=== PATIENT | female | born 1940 | race Caucasian/White ===

== ENCOUNTER 2018-08-28 12:54 | Emergency (ER) | payer MEDICARE, OTHER ==
[~2018-08-28] VITALS: Ht 165.1 cm; Wt 70.3 kg
[~2018-08-28 12:54] MED LIST: DILTIAZEM; METF-372; WARFARIN
[2018-08-28] MEDS ORDERED: InsuLIN REG 1unit/0.01ml Soln (100units/ml) SC ONE (13:30)
[2018-08-28 13:33] LABS: Basophils # (auto) 0 uL; Basophils % (auto) 0.3 % (0.0-2.0); Eosinophils # (auto) 0.2 uL; Eosinophils % (auto) 4.1 % (0.0-7.0); Hematocrit 32.4 % (36.0-46.0); Hemoglobin 10.3 g/dL (12.2-16.2); Lymphocytes # (auto) 0.7 uL; Lymphocytes % (auto) 15.8 % (10.0-50.0); Mean Corpuscular Hemoglobin 28.1 pg (28.0-32.0); Mean Corpuscular Hgb Conc. 31.8 g/dL (32.0-36.0); Mean Corpuscular Volume 88.6 fL (80.0-100.0); Monocytes # (auto) 0.5 uL; Monocytes % (auto) 10.6 % (0.0-12.0); Neutrophils # (auto) 3.2 uL; Neutrophils % (auto) 69.2 % (37.0-80.0); Platelet Count (auto) 118 10^3/uL (140-450); Red Blood Cells 3.66 10^6/uL (4.0-5.20); Red Cell Distribution Width 16.5 % (11.8-14.3); White Blood Cell 4.6 10^3/uL (4.4-10.8)
[2018-08-28 13:48] LABS: Albumin 3.6 g/dL (3.4-5.0); Anion Gap 6 (5-15); Blood Urea Nitrogen 14 mg/dL (7-18); Calcium 8.6 mg/dL (8.5-10.1); Carbon Dioxide 25 mmol/L (21-32); Chloride 101 mmol/L (98-107); Magnesium 1.8 mg/dL (1.6-2.6); Potassium 4.7 mmol/L (3.5-5.1); Sodium 132 mmol/L (136-145)
[2018-08-28 13:56] LABS: Alanine Aminotransferase 30 U/L (13-56); Alkaline Phosphatase 79 U/L (45-117); Aspartate Aminotransferase 33 U/L (15-37); BUN/Creatinine Ratio 11.5; Bilirubin, Total 1.2 mg/dL (0.2-1.0); GFR African American 55 mL/min; GFR Non-African American 45 mL/min; Total Protein 7.6 g/dL (6.4-8.2)
[2018-08-28 14:03] LABS: Glucose 425 mg/dL (74-106)
[2018-08-28 14:55] LABS: Urine Bacteria NONE SEEN /hpf (None Seen); Urine Blood Negative /uL (Negative); Urine Specific Gravity 1.024 (1.001-1.035); Urine WBC 1 /hpf (0 - 5)
[2018-08-28] MEDS ORDERED: SODIUM CHLORIDE 0.9% 1,000 ML IV ONE ×2 (15:39)
[2018-08-28 16:55] VITALS: BP 132/80
== END 2018-08-28 16:59 | disposition home or self-care (01) ==
LOC: ER 13:03
DX: E11.65 Type 2 diabetes mellitus with hyperglycemia (principal); I50.9 Heart failure, unspecified; I48.91 Unspecified atrial fibrillation; Z86.73 Personal history of transient ischemic attack (TIA), and cerebral infarction without residual deficits; Z85.828 Personal history of other malignant neoplasm of skin; Z88.1 Allergy status to other antibiotic agents; Z88.8 Allergy status to other drugs, medicaments and biological substances
CPT/HCPCS: 36415; 71046; 80053; 81001; 82962; 83735; 84484; 85025; 93005; 94761; 96360; 96372; 99284; J1815; J7030

== ENCOUNTER 2019-01-09 09:25 | Emergency (ER) | payer OTHER ==
[~2019-01-09] VITALS: Ht 154.9 cm; Wt 61.2 kg
[2019-01-09 09:35] VITALS: BP 97/75
== END 2019-01-09 11:12 | disposition home or self-care (01) ==
LOC: ER 09:25
DX: M54.31 Sciatica, right side (principal); I48.91 Unspecified atrial fibrillation; E11.9 Type 2 diabetes mellitus without complications; Z90.710 Acquired absence of both cervix and uterus; Z88.1 Allergy status to other antibiotic agents; Z88.8 Allergy status to other drugs, medicaments and biological substances; Z79.84 Long term (current) use of oral hypoglycemic drugs; Z79.01 Long term (current) use of anticoagulants; Z86.73 Personal history of transient ischemic attack (TIA), and cerebral infarction without residual deficits
CPT/HCPCS: 93971

== ENCOUNTER 2019-11-29 11:52 | Inpatient (IN) | payer OTHER ==
[2019-11-28 14:29] VITALS: BP 103/61
[~2019-11-29] VITALS: Ht 152.4 cm; Wt 59.8 kg
[2019-11-29] VITALS (28 sets, daily range): BP systolic 92–170; BP diastolic 44–143
[~2019-11-29 11:52] MED LIST changes: -DILTIAZEM; +DILTIAZEM PO; -WARFARIN; +WARFARIN PO
[2019-11-29] MEDS ORDERED: MIDAZOLAM DRIP 50 mg/50mL 50 ML IV ONE (11:57)
[2019-11-29] MEDS ORDERED: SUCCINYLCHOLINE CHLORIDE 20 MG/ML 10ML VIAL IV ONE ×2 (11:58→12:15)
[2019-11-29] MEDS ORDERED: ETOMIDATE (2MG/ML) 20ML VIAL IV ONE ×2 (11:58→12:15)
[2019-11-29] MEDS: MIDAZOLAM DRIP 50 mg/50mL 50 ML IV SCH ×2 (12:10→21:03)
[2019-11-29] MEDS ORDERED: PROPOFOL 100 ML IV ONE (12:16)
[2019-11-29] MEDS ORDERED: NOREPINEPHRINE 8 MG/250ML KIT 250 ML IV ONE (12:23)
[2019-11-29] MEDS: NOREPINEPHRINE 8 MG/250ML KIT 250 ML IV SCH ×2 (12:30→21:03)
[2019-11-29 13:06] LABS: Albumin 2.9 g/dL (3.4-5.0); Potassium 3.7 mmol/L (3.5-5.1)
[2019-11-29 13:11] LABS: Basophils # (auto) 0 10 ^3/uL (0-0.2); Basophils % (auto) 0.3 % (0.0-2.0); Eosinophils # (auto) 0.1 10 ^3/uL (0-0.8); Eosinophils % (auto) 0.7 % (0.0-7.0); Hematocrit 47.4 % (36.0-46.0); Hemoglobin 14.7 g/dL (12.2-16.2); Lymphocytes # (auto) 1.5 10 ^3/uL (0.4-5.4); Lymphocytes % (auto) 13.6 % (10.0-50.0); Mean Corpuscular Hemoglobin 26.7 pg (28.0-32.0); Mean Corpuscular Volume 86.1 fL (80.0-100.0); Monocytes # (auto) 0.2 10 ^3/uL (0-1.3); Monocytes % (auto) 1.4 % (0.0-12.0); Neutrophils # (auto) 9.3 10 ^3/uL (1.6-8.6); Nucleated Red Blood Cells % 0.1 %; Platelet Count (auto) 162 10^3/uL (140-450); Red Cell Distribution Width 17.1 % (11.8-14.3); Total Protein 7.6 g/dL (6.4-8.2); White Blood Cell 11.1 10^3/uL (4.4-10.8)
[2019-11-29] MEDS ORDERED: IOHEXOL 350 MG/ML 100ML IJ ONE ×2 (13:35→13:43)
[2019-11-29] MEDS: PROPOFOL 100 ML IV SCH (14:07)
[2019-11-29] MEDS ORDERED: fentaNYL Drip 2500mCg/250mlNS 250 ML IV SCH (14:07)
[2019-11-29] MEDS ORDERED: MORPHINE SULF INJ 2 MG/ML SYRINGE 1ML IV PRN (14:15)
[2019-11-29] MEDS ORDERED: SODIUM BICARBONATE 8.4 % INJ 50ML VIAL IV ONE (14:15)
[2019-11-29] MEDS ORDERED: ENOXAPARIN SOD 60 MG/0.6 ML SYRINGE SC ONE (14:15)
[2019-11-29] MEDS ORDERED: DEXTROSE (50%) 50ML SYRG IV PRN (14:15)
[2019-11-29] MEDS ORDERED: NITROGLYCERIN 0.4 MG SL TAB SL PRN (14:15)
[2019-11-29] MEDS ORDERED: AMIODARONE HCL 150 MG in D5W 5% 100 ML IV ONE (15:00)
[2019-11-29] MEDS: PHENYLEPHRINE IV 250 ML IV SCH ×2 (15:00→23:16)
[2019-11-29] MEDS ORDERED: AMIODARONE 450mg/250ml AE 250 ML IV SCH ×2 (15:00→21:00)
[2019-11-29 15:29] LABS: INR 2.3 (0.9-1.15); Partial Thromboplastin Time 40.9 sec (23.64-32.05)
[2019-11-29] MEDS: ACCU-CHEK COMFORT CURVE STRIP VI SCH ×2 (16:36→21:30)
[2019-11-29] MEDS: InsuLIN REG 1unit/0.01ml Soln (100units/ml) SC SCH ×2 (16:47→21:30)
[2019-11-29] MEDS: SODIUM BICARBONATE 50ML VIAL 50 ML in SOD CHL 0.45% 1,000 ML IV SCH ×3 (17:37)
[2019-11-29 17:51] LABS: Lactic Acid w/Reflex 10.3 mmol/L (0.4-2.0)
[2019-11-29] MEDS ORDERED: DIGO1TAB35 PO (21:09)
[2019-11-29] MEDS ORDERED: LINA5TAB PO (21:09)
[2019-11-29] MEDS ORDERED: PANT1INJ3 PO (21:09)
[2019-11-29] MEDS ORDERED: METO25TA93 PO (21:09)
[2019-11-30] VITALS (107 sets, daily range): BP systolic 75–153; BP diastolic 36–83
[2019-11-30 04:54] LABS: Basophils # (auto) 0 10 ^3/uL (0-0.2); Hemoglobin 12.5 g/dL (12.2-16.2); Monocytes # (auto) 0.6 10 ^3/uL (0-1.3); Nucleated Red Blood Cells % 0.1 %
[2019-11-30 05:00] LABS: Basophils % (auto) 0.2 % (0.0-2.0); Eosinophils # (auto) 0.1 10 ^3/uL (0-0.8); Eosinophils % (auto) 0.5 % (0.0-7.0); Hematocrit 37.7 % (36.0-46.0); Lymphocytes # (auto) 1.5 10 ^3/uL (0.4-5.4); Lymphocytes % (auto) 13.2 % (10.0-50.0); Mean Corpuscular Hemoglobin 27.5 pg (28.0-32.0); Mean Corpuscular Hgb Conc. 33.3 g/dL (32.0-36.0); Mean Corpuscular Volume 82.6 fL (80.0-100.0); Monocytes % (auto) 5.3 % (0.0-12.0); Neutrophils # (auto) 9.4 10 ^3/uL (1.6-8.6); Neutrophils % (auto) 80.8 % (37.0-80.0); Platelet Count (auto) 125 10^3/uL (140-450); Red Blood Cells 4.56 10^6/uL (4.0-5.20); Red Cell Distribution Width 16.6 % (11.8-14.3); White Blood Cell 11.6 10^3/uL (4.4-10.8)
[2019-11-30] MEDS ORDERED: AMIODARONE 450mg/250ml AE 250 ML IV SCH ×2 (05:03→18:03)
[2019-11-30 05:07] LABS: Albumin 2.5 g/dL (3.4-5.0); Calcium 8.5 mg/dL (8.5-10.1); Potassium 3.5 mmol/L (3.5-5.1)
[2019-11-30 05:11] LABS: BUN/Creatinine Ratio 17.1; Bilirubin, Total 1.3 mg/dL (0.2-1.0); Total Protein 6.3 g/dL (6.4-8.2)
[2019-11-30] MEDS: ACCU-CHEK COMFORT CURVE STRIP VI SCH ×4 (07:20→22:00)
[2019-11-30] MEDS: InsuLIN REG 1unit/0.01ml Soln (100units/ml) SC SCH ×4 (07:20→22:00)
[2019-11-30] MEDS: PHENYLEPHRINE IV 250 ML IV SCH (07:30)
[2019-11-30] MEDS: MIDAZOLAM DRIP 50 mg/50mL 50 ML IV SCH ×2 (08:02→15:57)
[2019-11-30] MEDS: SODIUM BICARBONATE 50ML VIAL 50 ML in SOD CHL 0.45% 1,000 ML IV SCH ×4 (08:04→18:17)
[2019-11-30] MEDS: cefTRIAXone 1GM/50ML D5W 50 ML IV SCH (09:09)
[2019-11-30] MEDS ORDERED: ZINC SULFATE 220mg CAP or TAB PO SCH (10:00)
[2019-11-30] MEDS ORDERED: CHOLECALCIFEROL (VITD3) 1,000IU=25mCg TAB PO SCH (10:00)
[2019-11-30] MEDS ORDERED: ASPirin-EC 81 mg tab PO SCH (10:00)
[2019-11-30] MEDS: ASCORBIC ACID 500 MG TAB PO SCH (10:27)
[2019-11-30] MEDS: ASPirin 81 mg TAB PO SCH (10:27)
[2019-11-30] MEDS: AZITHROMYCIN 500MG/ 250ML 250 ML IV SCH (10:27)
[2019-11-30] MEDS: ENOXAPARIN SOD 30 MG/0.3 ML SYRINGE SC SCH (10:28)
[2019-11-30] MEDS: PROPOFOL 100 ML IV SCH (12:21)
[2019-11-30] MEDS: NOREPINEPHRINE 8 MG/250ML KIT 250 ML IV SCH (14:32)
[2019-11-30 14:34] LABS: BUN/Creatinine Ratio 17.3; Potassium 4.1 mmol/L (3.5-5.1)
[2019-11-30] MEDS ORDERED: DEXTROSE (50%) 50ML SYRG IV PRN ×2 (14:45→15:15)
[2019-11-30] MEDS ORDERED: InsuLIN R (HUMAN) 100 UNITS in SODIUM CHL 0.9% 99 ML IV SCH (14:45)
[2019-11-30] MEDS ORDERED: ACCU-CHEK COMFORT CURVE STRIP VI SCH (15:00)
[2019-11-30 18:54] LABS: BUN/Creatinine Ratio 20.9; Calcium 7.7 mg/dL (8.5-10.1)
[2019-12-01] VITALS (97 sets, daily range): BP systolic 81–131; BP diastolic 29–67
[2019-12-01] MEDS: AMIODARONE 450mg/250ml AE 250 ML IV SCH ×2 (00:03→15:25)
[2019-12-01] MEDS: SODIUM BICARBONATE 50ML VIAL 50 ML in SOD CHL 0.45% 1,000 ML IV SCH ×2 (00:15→10:45)
[2019-12-01] MEDS: MIDAZOLAM DRIP 50 mg/50mL 50 ML IV SCH ×2 (00:43→20:16)
[2019-12-01 03:42] LABS: Albumin 2.1 g/dL (3.4-5.0); Calcium 7.3 mg/dL (8.5-10.1); Potassium 3.7 mmol/L (3.5-5.1)
[2019-12-01 03:45] LABS: BUN/Creatinine Ratio 22.5; Bilirubin, Total 1.6 mg/dL (0.2-1.0); Total Protein 5.2 g/dL (6.4-8.2)
[2019-12-01 03:46] LABS: Lactic Acid w/Reflex 2.3 mmol/L (0.4-2.0)
[2019-12-01] MEDS: ACCU-CHEK COMFORT CURVE STRIP VI SCH ×4 (06:27→21:43)
[2019-12-01] MEDS: InsuLIN REG 1unit/0.01ml Soln (100units/ml) SC SCH ×4 (06:27→21:45)
[2019-12-01 08:42] LABS: Basophils # (auto) 0 10 ^3/uL (0-0.2); Basophils % (auto) 0.4 % (0.0-2.0); Eosinophils # (auto) 0.1 10 ^3/uL (0-0.8); Eosinophils % (auto) 1.3 % (0.0-7.0); Hematocrit 27.1 % (36.0-46.0); Hemoglobin 9.2 g/dL (12.2-16.2); Lymphocytes # (auto) 0.8 10 ^3/uL (0.4-5.4); Lymphocytes % (auto) 10.8 % (10.0-50.0); Mean Corpuscular Hemoglobin 27.2 pg (28.0-32.0); Mean Corpuscular Hgb Conc. 33.9 g/dL (32.0-36.0); Mean Corpuscular Volume 80.3 fL (80.0-100.0); Monocytes # (auto) 0.6 10 ^3/uL (0-1.3); Monocytes % (auto) 8.2 % (0.0-12.0); Neutrophils # (auto) 6.1 10 ^3/uL (1.6-8.6); Neutrophils % (auto) 79.3 % (37.0-80.0); Nucleated Red Blood Cells % 0.1 %; Platelet Count (auto) 74 10^3/uL (140-450); Red Blood Cells 3.38 10^6/uL (4.0-5.20); Red Cell Distribution Width 16.5 % (11.8-14.3); White Blood Cell 7.7 10^3/uL (4.4-10.8)
[2019-12-01] MEDS: cefTRIAXone 1GM/50ML D5W 50 ML IV SCH (09:30)
[2019-12-01] MEDS: ASCORBIC ACID 500 MG TAB PO SCH (10:00)
[2019-12-01] MEDS: ENOXAPARIN SOD 30 MG/0.3 ML SYRINGE SC SCH (10:00)
[2019-12-01] MEDS: ASPirin 81 mg TAB PO SCH (10:00)
[2019-12-01] MEDS ORDERED: PHYTONADIONE (VIT K)10 MG/ML 1ML VIAL SUBCUT ONE (10:00)
[2019-12-01] MEDS: PANTOPRAZOLE 40 MG/10 ML VIAL INJ IV SCH (10:41)
[2019-12-01] MEDS: AZITHROMYCIN 500MG/ 250ML 250 ML IV SCH (10:43)
[2019-12-01 11:22] LABS: INR 1.58 (0.9-1.15)
[2019-12-01] MEDS ORDERED: LIDOCAINE W/ EPINEPHRINE 1% 20ML VIAL ONE (13:19)
[2019-12-01] MEDS ORDERED: MIDAZOLAM HCL 1MG/1ML-2 ML VIAL ONE (13:29)
[2019-12-01] MEDS ORDERED: fentaNYL CITRATE 100 MCG/2 ML VL ONE (13:29)
[2019-12-01] MEDS ORDERED: MIDAZOLAM HCL 1MG/1ML-2 ML VIAL IV PRN (14:30)
[2019-12-01] MEDS ORDERED: ACCU-CHEK COMFORT CURVE STRIP VI ONE (14:30)
[2019-12-01] MEDS ORDERED: LABETALOL HCL 5 MG/ML 4ML SYRINGE IV PRN (14:30)
[2019-12-01] MEDS ORDERED: HYDROmorphone HCL 2 MG/ML VL IV PRN (14:30)
[2019-12-01] MEDS ORDERED: ONDANSETRON HCL 4 MG/2 ML VIAL IV PRN (14:30)
[2019-12-01] MEDS ORDERED: ePHEDrine SULFATE 50 MG/ML AMP IV PRN (14:30)
[2019-12-01] MEDS ORDERED: MORPHINE SULFATE 4 MG/ML SYR/VIAL IV PRN (14:30)
[2019-12-01] MEDS: INSULIN LANTUS (GLARGINE) 1 /0.01ml (100units/ml) SC SCH (16:00)
[2019-12-01] MEDS: PROPOFOL 100 ML IV SCH (16:08)
[2019-12-01 17:38] LABS: Magnesium 1.4 mg/dL (1.6-2.6)
[2019-12-01] MEDS ORDERED: DIGOXIN 0.125 MG TAB GT ONE (18:00)
[2019-12-01] MEDS: fentaNYL Drip 2500mCg/250mlNS 250 ML IV SCH (18:00)
[2019-12-01] MEDS: MAGNESIUM SULFATE 1GM/100ML 100 ML IV SCH ×2 (18:54→19:00)
[2019-12-02] VITALS (112 sets, daily range): BP systolic 37–185; BP diastolic 22–90
[2019-12-02] MEDS: AMIODARONE 450mg/250ml AE 250 ML IV SCH ×2 (03:30→15:09)
[2019-12-02 03:48] LABS: Albumin 2.2 g/dL (3.4-5.0); Calcium 7.6 mg/dL (8.5-10.1); Magnesium 1.9 mg/dL (1.6-2.6); Potassium 3.6 mmol/L (3.5-5.1)
[2019-12-02 03:55] LABS: BUN/Creatinine Ratio 18.4; Bilirubin, Total 1.6 mg/dL (0.2-1.0); Total Protein 5.7 g/dL (6.4-8.2)
[2019-12-02] MEDS: ACCU-CHEK COMFORT CURVE STRIP VI SCH ×4 (06:39→21:44)
[2019-12-02] MEDS: InsuLIN REG 1unit/0.01ml Soln (100units/ml) SC SCH ×4 (06:43→21:53)
[2019-12-02] MEDS: cefTRIAXone 1GM/50ML D5W 50 ML IV SCH (08:55)
[2019-12-02] MEDS: ENOXAPARIN SOD 30 MG/0.3 ML SYRINGE SC SCH (10:00)
[2019-12-02] MEDS: DIGOXIN 0.125 MG TAB GT SCH (10:00)
[2019-12-02] MEDS: ASPirin 81 mg TAB PO SCH (11:08)
[2019-12-02] MEDS: ASCORBIC ACID 500 MG TAB PO SCH (11:08)
[2019-12-02] MEDS: AZITHROMYCIN 500MG/ 250ML 250 ML IV SCH (11:08)
[2019-12-02] MEDS: PANTOPRAZOLE 40 MG/10 ML VIAL INJ IV SCH (11:08)
[2019-12-02] MEDS: INSULIN LANTUS (GLARGINE) 1 /0.01ml (100units/ml) SC SCH (11:09)
[2019-12-02] MEDS: NOREPINEPHRINE 8 MG/250ML KIT 250 ML IV SCH (12:30)
[2019-12-02] MEDS: MAGNESIUM SULFATE 1GM/100ML 100 ML IV SCH ×2 (13:30→15:08)
[2019-12-02] MEDS: PROPOFOL 100 ML IV SCH (15:42)
[2019-12-02] MEDS: fentaNYL Drip 2500mCg/250mlNS 250 ML IV SCH (16:08)
[2019-12-03] VITALS (102 sets, daily range): BP systolic 96–137; BP diastolic 39–72
[2019-12-03 03:54] LABS: Basophils # (auto) 0 10 ^3/uL (0-0.2); Basophils % (auto) 0.2 % (0.0-2.0); Eosinophils # (auto) 0 10 ^3/uL (0-0.8); Eosinophils % (auto) 0.8 % (0.0-7.0); Hematocrit 26.5 % (36.0-46.0); Hemoglobin 8.7 g/dL (12.2-16.2); Lymphocytes # (auto) 0.6 10 ^3/uL (0.4-5.4); Lymphocytes % (auto) 10.9 % (10.0-50.0); Mean Corpuscular Hgb Conc. 32.8 g/dL (32.0-36.0); Mean Corpuscular Volume 82.2 fL (80.0-100.0); Monocytes # (auto) 0.6 10 ^3/uL (0-1.3); Neutrophils # (auto) 4.4 10 ^3/uL (1.6-8.6); Neutrophils % (auto) 77.1 % (37.0-80.0); Platelet Count (auto) 53 10^3/uL (140-450); Red Blood Cells 3.23 10^6/uL (4.0-5.20); Red Cell Distribution Width 16.3 % (11.8-14.3); White Blood Cell 5.7 10^3/uL (4.4-10.8)
[2019-12-03 04:16] LABS: INR 1.2 (0.9-1.15)
[2019-12-03 04:21] LABS: Potassium 3.4 mmol/L (3.5-5.1)
[2019-12-03 04:32] LABS: Albumin 2.2 g/dL (3.4-5.0); BUN/Creatinine Ratio 18.2; Calcium 7.7 mg/dL (8.5-10.1); Magnesium 1.9 mg/dL (1.6-2.6)
[2019-12-03 04:34] LABS: Bilirubin, Total 1.6 mg/dL (0.2-1.0); Total Protein 5.5 g/dL (6.4-8.2)
[2019-12-03] MEDS: ACCU-CHEK COMFORT CURVE STRIP VI SCH ×4 (06:43→21:51)
[2019-12-03] MEDS: InsuLIN REG 1unit/0.01ml Soln (100units/ml) SC SCH ×4 (06:50→22:10)
[2019-12-03] MEDS ORDERED: MAGNESIUM SULFATE 1GM/100ML 100 ML IV ONE ×2 (08:15→16:00)
[2019-12-03] MEDS: POTASSIUM CHL 20MEQ/100ML 100 ML IV SCH ×2 (09:05→10:50)
[2019-12-03 10:00] LABS: Hepatitis A Ab IgM Negative; Hepatitis B Core IgM Negative; Hepatitis B Surface Antigen Negative (Negative); Hepatitis C Antibody Negative (Negative)
[2019-12-03] MEDS: DIGOXIN 0.125 MG TAB GT SCH (10:00)
[2019-12-03] MEDS: ENOXAPARIN SOD 30 MG/0.3 ML SYRINGE SC SCH (10:00)
[2019-12-03] MEDS: ASPirin 81 mg TAB PO SCH (10:49)
[2019-12-03] MEDS: ASCORBIC ACID 500 MG TAB PO SCH (10:49)
[2019-12-03] MEDS: PANTOPRAZOLE 40 MG/10 ML VIAL INJ IV SCH (10:49)
[2019-12-03] MEDS: cefTRIAXone 1GM/50ML D5W 50 ML IV SCH (10:50)
[2019-12-03] MEDS: INSULIN LANTUS (GLARGINE) 1 /0.01ml (100units/ml) SC SCH (10:51)
[2019-12-03] MEDS: MIDAZOLAM DRIP 50 mg/50mL 50 ML IV SCH (12:23)
[2019-12-03] MEDS: NOREPINEPHRINE 8 MG/250ML KIT 250 ML IV SCH (12:30)
[2019-12-03] MEDS: AZITHROMYCIN 500MG/ 250ML 250 ML IV SCH (12:40)
[2019-12-03] MEDS: fentaNYL Drip 2500mCg/250mlNS 250 ML IV SCH (15:49)
[2019-12-03] MEDS: PROPOFOL 100 ML IV SCH (15:49)
[2019-12-03] MEDS: AMIODARONE 450mg/250ml AE 250 ML IV SCH (18:01)
[2019-12-03] MEDS ORDERED: Glucerna 1.2 Cal 1Liter BOTTLE GT SCH (18:15)
[2019-12-03] MEDS ORDERED: CARVEDILOL 3.125 MG TAB GT SCH (22:00)
[2019-12-03 23:31] LABS: Basophils # (auto) 0 10 ^3/uL (0-0.2); Basophils % (auto) 0.1 % (0.0-2.0); Eosinophils # (auto) 0 10 ^3/uL (0-0.8); Eosinophils % (auto) 0.6 % (0.0-7.0); Hemoglobin 8.6 g/dL (12.2-16.2); Lymphocytes # (auto) 0.6 10 ^3/uL (0.4-5.4); Lymphocytes % (auto) 7.9 % (10.0-50.0); Mean Corpuscular Hemoglobin 27.1 pg (28.0-32.0); Mean Corpuscular Volume 82.1 fL (80.0-100.0); Monocytes # (auto) 0.8 10 ^3/uL (0-1.3); Monocytes % (auto) 9.9 % (0.0-12.0); Neutrophils # (auto) 6.7 10 ^3/uL (1.6-8.6); Neutrophils % (auto) 81.5 % (37.0-80.0); Platelet Count (auto) 75 10^3/uL (140-450); Red Blood Cells 3.16 10^6/uL (4.0-5.20); Red Cell Distribution Width 16.8 % (11.8-14.3); White Blood Cell 8.3 10^3/uL (4.4-10.8)
[2019-12-03 23:38] LABS: Potassium 3.8 mmol/L (3.5-5.1)
[2019-12-04] VITALS (76 sets, daily range): BP systolic 97–136; BP diastolic 33–58
[2019-12-04] MEDS: AMIODARONE 450mg/250ml AE 250 ML IV SCH ×2 (00:30→18:38)
[2019-12-04] MEDS ORDERED: POTASSIUM CHL 20MEQ/100ML 100 ML IV ONE (01:30)
[2019-12-04 04:35] LABS: Basophils # (auto) 0 10 ^3/uL (0-0.2); Basophils % (auto) 0.2 % (0.0-2.0); Eosinophils # (auto) 0.1 10 ^3/uL (0-0.8); Eosinophils % (auto) 1.1 % (0.0-7.0); Hematocrit 25.2 % (36.0-46.0); Hemoglobin 8.5 g/dL (12.2-16.2); Lymphocytes # (auto) 0.8 10 ^3/uL (0.4-5.4); Lymphocytes % (auto) 9.1 % (10.0-50.0); Mean Corpuscular Hgb Conc. 33.8 g/dL (32.0-36.0); Mean Corpuscular Volume 82.8 fL (80.0-100.0); Monocytes # (auto) 0.9 10 ^3/uL (0-1.3); Neutrophils # (auto) 7.1 10 ^3/uL (1.6-8.6); Neutrophils % (auto) 79.6 % (37.0-80.0); Platelet Count (auto) 84 10^3/uL (140-450); Red Blood Cells 3.05 10^6/uL (4.0-5.20); Red Cell Distribution Width 16.5 % (11.8-14.3); White Blood Cell 8.9 10^3/uL (4.4-10.8)
[2019-12-04 04:53] LABS: BUN/Creatinine Ratio 16.3; Magnesium 2.1 mg/dL (1.6-2.6); Potassium 4.2 mmol/L (3.5-5.1)
[2019-12-04 04:55] LABS: Bilirubin, Total 2.1 mg/dL (0.2-1.0); Total Protein 5.7 g/dL (6.4-8.2)
[2019-12-04] MEDS: ACCU-CHEK COMFORT CURVE STRIP VI SCH ×4 (06:39→21:38)
[2019-12-04] MEDS: InsuLIN REG 1unit/0.01ml Soln (100units/ml) SC SCH ×4 (06:46→21:39)
[2019-12-04] MEDS: cefTRIAXone 1GM/50ML D5W 50 ML IV SCH (08:38)
[2019-12-04] MEDS: AZITHROMYCIN 500MG/ 250ML 250 ML IV SCH (09:44)
[2019-12-04] MEDS: INSULIN LANTUS (GLARGINE) 1 /0.01ml (100units/ml) SC SCH (09:45)
[2019-12-04] MEDS: PANTOPRAZOLE 40 MG/10 ML VIAL INJ IV SCH (09:46)
[2019-12-04] MEDS: DIGOXIN 0.125 MG TAB GT SCH (09:46)
[2019-12-04] MEDS: CARVEDILOL 12.5 MG TAB PO SCH ×2 (09:52→21:42)
[2019-12-04] MEDS ORDERED: FUROSEMIDE 20 MG/2 ML VIAL IV ONE (14:45)
[2019-12-04] MEDS ORDERED: ALBUTEROL SULF 2.5 MG/0.5ML(0.5%) NEB SOLN NEB PRN (21:00)
[2019-12-04] MEDS: AMIODARONE HCL 200 MG TAB PO SCH (21:38)
[2019-12-05] VITALS (24 sets, daily range): BP systolic 89–145; BP diastolic 35–95
[2019-12-05 04:38] LABS: Basophils # (auto) 0 10 ^3/uL (0-0.2); Basophils % (auto) 0.3 % (0.0-2.0); Eosinophils # (auto) 0.3 10 ^3/uL (0-0.8); Eosinophils % (auto) 3.8 % (0.0-7.0); Hemoglobin 8.2 g/dL (12.2-16.2); Lymphocytes % (auto) 13.1 % (10.0-50.0); Mean Corpuscular Volume 82.4 fL (80.0-100.0); Monocytes # (auto) 1.1 10 ^3/uL (0-1.3); Monocytes % (auto) 14.5 % (0.0-12.0); Neutrophils # (auto) 5.2 10 ^3/uL (1.6-8.6); Neutrophils % (auto) 68.3 % (37.0-80.0); Platelet Count (auto) 108 10^3/uL (140-450); Red Blood Cells 2.91 10^6/uL (4.0-5.20); Red Cell Distribution Width 16.8 % (11.8-14.3); White Blood Cell 7.7 10^3/uL (4.4-10.8)
[2019-12-05 04:59] LABS: Potassium 3.7 mmol/L (3.5-5.1)
[2019-12-05 05:07] LABS: Albumin 2.4 g/dL (3.4-5.0); BUN/Creatinine Ratio 22.2; Bilirubin, Total 2.2 mg/dL (0.2-1.0); Calcium 8.2 mg/dL (8.5-10.1); Total Protein 6.4 g/dL (6.4-8.2)
[2019-12-05] MEDS: ACCU-CHEK COMFORT CURVE STRIP VI SCH ×4 (06:20→22:00)
[2019-12-05] MEDS: InsuLIN REG 1unit/0.01ml Soln (100units/ml) SC SCH ×4 (06:20→21:51)
[2019-12-05] MEDS: FUROSEMIDE 20 MG/2 ML VIAL IV SCH ×2 (06:22→18:04)
[2019-12-05] MEDS: AMIODARONE 450mg/250ml AE 250 ML IV SCH ×2 (06:30→21:30)
[2019-12-05] MEDS: cefTRIAXone 1GM/50ML D5W 50 ML IV SCH (09:16)
[2019-12-05] MEDS: CARVEDILOL 12.5 MG TAB PO SCH (10:02)
[2019-12-05] MEDS: AZITHROMYCIN 500MG/ 250ML 250 ML IV SCH (10:02)
[2019-12-05] MEDS: PANTOPRAZOLE 40 MG/10 ML VIAL INJ IV SCH (10:02)
[2019-12-05] MEDS: DIGOXIN 0.125 MG TAB GT SCH (10:02)
[2019-12-05] MEDS: AMIODARONE HCL 200 MG TAB PO SCH ×2 (10:02→21:49)
[2019-12-05] MEDS: INSULIN LANTUS (GLARGINE) 1 /0.01ml (100units/ml) SC SCH (10:08)
[2019-12-06] VITALS (19 sets, daily range): BP systolic 95–134; BP diastolic 24–56
[2019-12-06 04:05] LABS: Basophils # (auto) 0 10 ^3/uL (0-0.2); Basophils % (auto) 0.2 % (0.0-2.0); Eosinophils # (auto) 0.3 10 ^3/uL (0-0.8); Hemoglobin 7.7 g/dL (12.2-16.2); Lymphocytes % (auto) 17.9 % (10.0-50.0); Neutrophils # (auto) 2.9 10 ^3/uL (1.6-8.6); Nucleated Red Blood Cells % 0.1 %; Platelet Count (auto) 103 10^3/uL (140-450)
[2019-12-06 04:08] LABS: Eosinophils % (auto) 5.6 % (0.0-7.0); Hematocrit 22.9 % (36.0-46.0); Lymphocytes # (auto) 0.8 10 ^3/uL (0.4-5.4); Mean Corpuscular Hemoglobin 28.1 pg (28.0-32.0); Mean Corpuscular Hgb Conc. 33.7 g/dL (32.0-36.0); Mean Corpuscular Volume 83.4 fL (80.0-100.0); Monocytes # (auto) 0.7 10 ^3/uL (0-1.3); Neutrophils % (auto) 61.3 % (37.0-80.0); Red Blood Cells 2.74 10^6/uL (4.0-5.20); Red Cell Distribution Width 16.8 % (11.8-14.3); White Blood Cell 4.7 10^3/uL (4.4-10.8)
[2019-12-06 04:19] LABS: Albumin 2.2 g/dL (3.4-5.0); Calcium 8.3 mg/dL (8.5-10.1); Potassium 3.3 mmol/L (3.5-5.1)
[2019-12-06 04:23] LABS: BUN/Creatinine Ratio 29.2
[2019-12-06 04:32] LABS: Bilirubin, Total 1.7 mg/dL (0.2-1.0); Total Protein 5.9 g/dL (6.4-8.2)
[2019-12-06] MEDS: ACCU-CHEK COMFORT CURVE STRIP VI SCH ×3 (06:10→16:43)
[2019-12-06] MEDS: InsuLIN REG 1unit/0.01ml Soln (100units/ml) SC SCH ×3 (06:10→17:00)
[2019-12-06] MEDS ORDERED: POTASSIUM CHLORIDE 40 MEQ in D5W 5% 1,000 ML IV SCH (06:30)
[2019-12-06] MEDS ORDERED: POTASSIUM CHL 20MEQ/100ML 200 ML IV ONE (06:32)
[2019-12-06] MEDS: cefTRIAXone 1GM/50ML D5W 50 ML IV SCH (09:05)
[2019-12-06] MEDS: PANTOPRAZOLE 40 MG/10 ML VIAL INJ IV SCH (09:07)
[2019-12-06] MEDS: DIGOXIN 0.125 MG TAB GT SCH (09:10)
[2019-12-06] MEDS: AMIODARONE HCL 200 MG TAB PO SCH (09:11)
[2019-12-06] MEDS: INSULIN LANTUS (GLARGINE) 1 /0.01ml (100units/ml) SC SCH (09:22)
[2019-12-06] MEDS ORDERED: FUROSEMIDE 20 MG TAB PO SCH (10:00)
[2019-12-06] MEDS ORDERED: POTASSIUM CHL 10 Meq TABLET PO SCH (10:00)
[2019-12-06] MEDS: AZITHROMYCIN 500MG/ 250ML 250 ML IV SCH (11:00)
[2019-12-06] MEDS ORDERED: SODIUM CHLORIDE 0.9% 1,000 ML IV SCH (14:00)
[2019-12-06] MEDS ORDERED: SODIUM CHLORIDE 0.9% 500 ML IV ONE (14:00)
== END 2019-12-06 22:00 | disposition short-term general hospital (02) | DRG 870 ==
LOC: ER 11:52 → EDBD 11:52 → OVERFLOW 11:53 → ICU WEST 15:35
PROVIDERS: ADMIT Nurse Practitioner Acute Care; ATTEND Internal Medicine
PROC: 5A1955Z Respiratory Ventilation, Greater than 96 Consecutive Hours (ICD-10-PCS; principal; 2019-11-29)
PROC: 0BH17EZ Insertion of Endotracheal Airway into Trachea, Via Natural or Artificial Opening (ICD-10-PCS; 2019-11-29)
PROC: 02HV33Z Insertion of Infusion Device into Superior Vena Cava, Percutaneous Approach (ICD-10-PCS; 2019-11-29)
PROC: 0W9B30Z Drainage of Left Pleural Cavity with Drainage Device, Percutaneous Approach (ICD-10-PCS; 2019-12-01)
PROC: 5A12012 Performance of Cardiac Output, Single, Manual (ICD-10-PCS; 2019-12-02)
DX: A41.9 Sepsis, unspecified organism (principal); J18.9 Pneumonia, unspecified organism; J96.01 Acute respiratory failure with hypoxia; R65.21 Severe sepsis with septic shock; I21.4 Non-ST elevation (NSTEMI) myocardial infarction; D65 Disseminated intravascular coagulation [defibrination syndrome]; E11.10 Type 2 diabetes mellitus with ketoacidosis without coma; K72.00 Acute and subacute hepatic failure without coma; G93.41 Metabolic encephalopathy; I26.99 Other pulmonary embolism without acute cor pulmonale; E44.0 Moderate protein-calorie malnutrition; N17.9 Acute kidney failure, unspecified; J93.9 Pneumothorax, unspecified; I48.20 Chronic atrial fibrillation, unspecified; I13.0 Hypertensive heart and chronic kidney disease with heart failure and stage 1 through stage 4 chronic kidney disease, or unspecified chronic kidney disease; E87.2 Acidosis; I31.3 Pericardial effusion (noninflammatory); T79.7XXA Traumatic subcutaneous emphysema, initial encounter; G93.1 Anoxic brain damage, not elsewhere classified; I47.2 Ventricular tachycardia; E11.65 Type 2 diabetes mellitus with hyperglycemia; E11.22 Type 2 diabetes mellitus with diabetic chronic kidney disease; N18.3 Chronic kidney disease, stage 3 (moderate); I50.9 Heart failure, unspecified; I25.10 Atherosclerotic heart disease of native coronary artery without angina pectoris; K74.60 Unspecified cirrhosis of liver; Y83.8 Other surgical procedures as the cause of abnormal reaction of the patient, or of later complication, without mention of misadventure at the time of the procedure; D72.829 Elevated white blood cell count, unspecified; I48.91 Unspecified atrial fibrillation; J45.909 Unspecified asthma, uncomplicated; E87.6 Hypokalemia; Z90.710 Acquired absence of both cervix and uterus; Z79.4 Long term (current) use of insulin; Z79.01 Long term (current) use of anticoagulants; Z86.73 Personal history of transient ischemic attack (TIA), and cerebral infarction without residual deficits; Z83.3 Family history of diabetes mellitus; Z79.899 Other long term (current) drug therapy; Z88.2 Allergy status to sulfonamides; Z88.1 Allergy status to other antibiotic agents; Z88.8 Allergy status to other drugs, medicaments and biological substances; D63.8 Anemia in other chronic diseases classified elsewhere
CPT/HCPCS: 31500; 36415; 36556; 36600; 51702; 70450; 71045; 71275; 76700; 80048; 80053; 80074; 82140; 82728; 82805; 82962; 83036; 83605; 83735; 83880; 84132; 84443; 84484; 85025; 85362; 85379; 85384; 85610; 85730; 86141; 87040; 87070; 87081; 87205; 87804; 87880; 92610; 93005; 93306; 93970; 94003; 94640; 95819; 96365; 96368; 96372; 96375; 97163; 99291; C9113; G0378; J0330; J0696; J1815; J2250; J2704; J3430; J3480; J7060

== ENCOUNTER 2020-01-08 07:03 | Inpatient (IN) | payer OTHER, MEDICAID ==
[~2020-01-08] VITALS: Ht 165.1 cm; Wt 57.5 kg
[~2020-01-08 07:03] MED LIST changes: +DIGO1TAB35 PO; +LINA5TAB PO; -METF-372; +METF-372 PO; +METO25TA93 PO; +PANT1INJ3 PO
[2020-01-08] MEDS ORDERED: FUROSEMIDE 20 MG/2 ML VIAL IV ONE (07:45)
[2020-01-08 08:01] LABS: Basophils # (auto) 0 10 ^3/uL (0-0.2); Basophils % (auto) 0.4 % (0.0-2.0); Eosinophils # (auto) 0.1 10 ^3/uL (0-0.8); Hematocrit 24.5 % (36.0-46.0); Hemoglobin 7.9 g/dL (12.2-16.2); Lymphocytes # (auto) 0.5 10 ^3/uL (0.4-5.4); Monocytes # (auto) 0.4 10 ^3/uL (0-1.3); Neutrophils # (auto) 1.8 10 ^3/uL (1.6-8.6); White Blood Cell 2.8 10^3/uL (4.4-10.8)
[2020-01-08 08:02] LABS: Eosinophils % (auto) 2.4 % (0.0-7.0); Lymphocytes % (auto) 18.9 % (10.0-50.0); Mean Corpuscular Hemoglobin 27.4 pg (28.0-32.0); Mean Corpuscular Hgb Conc. 32.4 g/dL (32.0-36.0); Mean Corpuscular Volume 84.5 fL (80.0-100.0); Monocytes % (auto) 13.7 % (0.0-12.0); Neutrophils % (auto) 64.6 % (37.0-80.0); Nucleated Red Blood Cells % 0.1 %; Platelet Count (auto) 95 10^3/uL (140-450); Red Cell Distribution Width 17.5 % (11.8-14.3)
[2020-01-08 08:15] LABS: INR 1.23 (0.9-1.15); Partial Thromboplastin Time 29.3 sec (23.64-32.05)
[2020-01-08 08:17] LABS: Albumin 2.8 g/dL (3.4-5.0); Potassium 3.8 mmol/L (3.5-5.1)
[2020-01-08 08:22] LABS: BUN/Creatinine Ratio 22.1; Total Protein 6.6 g/dL (6.4-8.2)
[2020-01-08] MEDS: InsuLIN REG 1unit/0.01ml Soln (100units/ml) SC SCH ×3 (11:30→22:00)
[2020-01-08] MEDS ORDERED: NITROGLYCERIN 0.4 MG SL TAB SL PRN (11:30)
[2020-01-08] MEDS ORDERED: PROMETHAZINE HCL 25 MG/ML 1ML IV PRN (11:30)
[2020-01-08] MEDS: ACCU-CHEK COMFORT CURVE STRIP VI SCH ×3 (11:30→21:45)
[2020-01-08] MEDS ORDERED: DEXTROSE (50%) 50ML SYRG IV PRN (11:30)
[2020-01-08] MEDS ORDERED: LACTULOSE 20Gm/30ML SOLN PO PRN (11:30)
[2020-01-08] MEDS ORDERED: traMADol HCL 50 MG TAB PO PRN (11:30)
[2020-01-08] MEDS ORDERED: MORPHINE SULF INJ 2 MG/ML SYRINGE 1ML IV PRN ×2 (11:30)
[2020-01-08] MEDS ORDERED: CLINDAMYCIN 600MG IV 50 ML IV ONE (12:45)
[2020-01-08] MEDS ORDERED: SPIRONOLACTONE 25 MG TAB PO ONE (12:45)
[2020-01-08 17:00] VITALS: BP 120/45
[2020-01-08] MEDS ORDERED: FLUT250M2 INH (17:00)
[2020-01-08] MEDS: ENOXAPARIN SOD 60 MG/0.6 ML SYRINGE SC SCH ×2 (17:11→21:45)
[2020-01-08] MEDS: SPIRONOLACTONE 25 MG TAB PO SCH (17:11)
[2020-01-08 20:00] VITALS: BP 145/50
[2020-01-08 21:00] VITALS: BP 145/50
[2020-01-08] MEDS: CLINDAMYCIN 600MG IV 50 ML IV SCH (21:45)
[2020-01-08 22:57] LABS: Urine Bacteria NONE SEEN /hpf (None Seen); Urine Blood Negative /uL (Negative); Urine Specific Gravity 1.013 (1.001-1.035); Urine WBC 1 /hpf (0 - 5)
[2020-01-08] MEDS: ALBUTEROL SULF 2.5 MG/0.5ML(0.5%) NEB SOLN NEB SCH (23:16)
[2020-01-08] MEDS: BUDESONIDE (INHALATION) 0.5 MG/2 ML NEB NEB SCH (23:16)
[2020-01-08 23:47] VITALS: BP 145/50
[2020-01-09] VITALS (7 sets, daily range): BP systolic 115–128; BP diastolic 38–55
[2020-01-09 05:37] LABS: Basophils # (auto) 0 10 ^3/uL (0-0.2); Eosinophils # (auto) 0.1 10 ^3/uL (0-0.8); Hemoglobin 7.9 g/dL (12.2-16.2); Lymphocytes # (auto) 0.6 10 ^3/uL (0.4-5.4); Monocytes # (auto) 0.3 10 ^3/uL (0-1.3); Neutrophils # (auto) 1.5 10 ^3/uL (1.6-8.6); White Blood Cell 2.5 10^3/uL (4.4-10.8)
[2020-01-09] MEDS: SPIRONOLACTONE 25 MG TAB PO SCH ×2 (05:38→17:24)
[2020-01-09] MEDS: ACETAMINOPHEN 325 MG TAB PO PRN (05:38)
[2020-01-09] MEDS: CLINDAMYCIN 600MG IV 50 ML IV SCH ×3 (05:38→22:16)
[2020-01-09 05:39] LABS: Basophils % (auto) 0.3 % (0.0-2.0); Hematocrit 23.9 % (36.0-46.0); Lymphocytes % (auto) 23.9 % (10.0-50.0); Mean Corpuscular Hemoglobin 27.8 pg (28.0-32.0); Mean Corpuscular Volume 84.5 fL (80.0-100.0); Monocytes % (auto) 13.1 % (0.0-12.0); Neutrophils % (auto) 59.7 % (37.0-80.0); Nucleated Red Blood Cells % 0.1 %; Platelet Count (auto) 86 10^3/uL (140-450); Red Blood Cells 2.83 10^6/uL (4.0-5.20); Red Cell Distribution Width 17.9 % (11.8-14.3)
[2020-01-09 05:59] LABS: Potassium 3.9 mmol/L (3.5-5.1)
[2020-01-09 06:12] LABS: Albumin 2.7 g/dL (3.4-5.0); BUN/Creatinine Ratio 23.4; Calcium 8.7 mg/dL (8.5-10.1); Total Protein 6.2 g/dL (6.4-8.2)
[2020-01-09] MEDS: ACCU-CHEK COMFORT CURVE STRIP VI SCH ×4 (06:38→22:17)
[2020-01-09] MEDS: InsuLIN REG 1unit/0.01ml Soln (100units/ml) SC SCH ×4 (06:39→22:18)
[2020-01-09] MEDS: ALBUTEROL SULF 2.5 MG/0.5ML(0.5%) NEB SOLN NEB SCH ×3 (06:53→22:34)
[2020-01-09] MEDS: BUDESONIDE (INHALATION) 0.5 MG/2 ML NEB NEB SCH ×2 (06:54→22:33)
[2020-01-09] MEDS ORDERED: ENOXAPARIN SOD 40 MG/0.4 ML SYRINGE SC SCH (10:00)
[2020-01-09] MEDS: METOPROLOL SUCCINATE XL 50 MG TAB PO SCH (10:00)
[2020-01-09] MEDS: DIGOXIN 0.125 MG TAB PO SCH (10:27)
[2020-01-09] MEDS: FUROSEMIDE 40 MG/4 ML VIAL IV SCH (10:28)
[2020-01-09] MEDS: PANTOPRAZOLE 40 MG/10 ML VIAL INJ IV SCH (10:29)
[2020-01-09] MEDS: ENOXAPARIN SOD 60 MG/0.6 ML SYRINGE SC SCH ×2 (10:30→22:17)
[2020-01-09] MEDS: cefTRIAXone 1GM/50ML D5W 50 ML IV SCH (10:33)
[2020-01-09] MEDS ORDERED: INSULIN LANTUS (GLARGINE) 1 /0.01ml (100units/ml) SC SCH (22:00)
[2020-01-10] MEDS: ACETAMINOPHEN 325 MG TAB PO PRN (04:02)
[2020-01-10 05:00] VITALS: BP 126/49
[2020-01-10 06:03] LABS: Basophils # (auto) 0 10 ^3/uL (0-0.2); Basophils % (auto) 0.4 % (0.0-2.0); Eosinophils # (auto) 0.1 10 ^3/uL (0-0.8); Eosinophils % (auto) 3.5 % (0.0-7.0); Hematocrit 23.9 % (36.0-46.0); Hemoglobin 7.9 g/dL (12.2-16.2); Lymphocytes # (auto) 0.7 10 ^3/uL (0.4-5.4); Lymphocytes % (auto) 30.7 % (10.0-50.0); Mean Corpuscular Hemoglobin 27.8 pg (28.0-32.0); Mean Corpuscular Hgb Conc. 33.1 g/dL (32.0-36.0); Monocytes # (auto) 0.3 10 ^3/uL (0-1.3); Monocytes % (auto) 12.7 % (0.0-12.0); Neutrophils # (auto) 1.2 10 ^3/uL (1.6-8.6); Neutrophils % (auto) 52.7 % (37.0-80.0); Nucleated Red Blood Cells % 0.1 %; Platelet Count (auto) 80 10^3/uL (140-450); Red Blood Cells 2.85 10^6/uL (4.0-5.20); Red Cell Distribution Width 17.8 % (11.8-14.3); White Blood Cell 2.3 10^3/uL (4.4-10.8)
[2020-01-10] MEDS: CLINDAMYCIN 600MG IV 50 ML IV SCH ×3 (06:06→21:24)
[2020-01-10] MEDS: SPIRONOLACTONE 25 MG TAB PO SCH ×2 (06:06→17:43)
[2020-01-10] MEDS: ACCU-CHEK COMFORT CURVE STRIP VI SCH ×4 (06:15→21:38)
[2020-01-10 06:28] LABS: Potassium 4.3 mmol/L (3.5-5.1)
[2020-01-10 06:33] LABS: Calcium 8.5 mg/dL (8.5-10.1); Magnesium 1.2 mg/dL (1.6-2.6)
[2020-01-10] MEDS: BUDESONIDE (INHALATION) 0.5 MG/2 ML NEB NEB SCH ×2 (06:41→22:00)
[2020-01-10] MEDS: ALBUTEROL SULF 2.5 MG/0.5ML(0.5%) NEB SOLN NEB SCH ×3 (06:41→22:00)
[2020-01-10] MEDS: InsuLIN REG 1unit/0.01ml Soln (100units/ml) SC SCH ×4 (06:43→21:37)
[2020-01-10 08:40] VITALS: BP 118/39
[2020-01-10] MEDS: cefTRIAXone 1GM/50ML D5W 50 ML IV SCH (09:00)
[2020-01-10] MEDS: PANTOPRAZOLE 40 MG/10 ML VIAL INJ IV SCH (10:00)
[2020-01-10] MEDS: METOPROLOL SUCCINATE XL 50 MG TAB PO SCH (10:02)
[2020-01-10] MEDS: DIGOXIN 0.125 MG TAB PO SCH (10:02)
[2020-01-10] MEDS: FUROSEMIDE 40 MG/4 ML VIAL IV SCH (10:02)
[2020-01-10] MEDS: ENOXAPARIN SOD 60 MG/0.6 ML SYRINGE SC SCH ×2 (10:03→21:25)
[2020-01-10 12:38] VITALS: BP 123/37
[2020-01-10 15:24] LABS: INR 1.2 (0.9-1.15)
[2020-01-10] MEDS: MAGNESIUM SULFATE 1GM/100ML 100 ML IV SCH ×3 (15:39→18:12)
[2020-01-10 16:50] VITALS: BP 119/36
[2020-01-10] MEDS: INSULIN LANTUS (GLARGINE) 1 /0.01ml (100units/ml) SC SCH (21:37)
[2020-01-10 21:44] VITALS: BP 136/61
[2020-01-10] MEDS ORDERED: DEXTROSE (50%) 50ML SYRG IV PRN (23:45)
[2020-01-11 05:00] VITALS: BP 135/67
[2020-01-11] MEDS: SPIRONOLACTONE 25 MG TAB PO SCH ×2 (06:00→17:23)
[2020-01-11] MEDS: BUDESONIDE (INHALATION) 0.5 MG/2 ML NEB NEB SCH ×2 (06:11→22:44)
[2020-01-11] MEDS: ALBUTEROL SULF 2.5 MG/0.5ML(0.5%) NEB SOLN NEB SCH ×3 (06:11→22:44)
[2020-01-11] MEDS: CLINDAMYCIN 600MG IV 50 ML IV SCH ×3 (06:21→21:14)
[2020-01-11] MEDS: InsuLIN REG 1unit/0.01ml Soln (100units/ml) SC SCH ×3 (06:21→16:35)
[2020-01-11] MEDS: ACCU-CHEK COMFORT CURVE STRIP VI SCH ×4 (06:22→21:14)
[2020-01-11] MEDS: cefTRIAXone 1GM/50ML D5W 50 ML IV SCH (08:23)
[2020-01-11] MEDS: ACETAMINOPHEN 325 MG TAB PO PRN ×2 (08:35→22:40)
[2020-01-11 09:00] VITALS: BP 139/46
[2020-01-11] MEDS: PANTOPRAZOLE 40 MG/10 ML VIAL INJ IV SCH (09:24)
[2020-01-11] MEDS: ENOXAPARIN SOD 60 MG/0.6 ML SYRINGE SC SCH ×2 (09:24→21:14)
[2020-01-11] MEDS: DIGOXIN 0.125 MG TAB PO SCH (09:25)
[2020-01-11] MEDS: FUROSEMIDE 40 MG/4 ML VIAL IV SCH (09:25)
[2020-01-11] MEDS: METOPROLOL SUCCINATE XL 50 MG TAB PO SCH (09:25)
[2020-01-11] MEDS: MAGNESIUM OXIDE 400 MG TAB PO SCH (09:25)
[2020-01-11] MEDS: INSULIN LANTUS (GLARGINE) 1 /0.01ml (100units/ml) SC SCH ×2 (09:27→21:24)
[2020-01-11 13:00] VITALS: BP 119/41
[2020-01-11 13:36] LABS: INR 1.15 (0.9-1.15)
[2020-01-11] MEDS ORDERED: PANT40T PO (16:16)
[2020-01-11] MEDS ORDERED: FLUT1AER6 IN (16:18)
[2020-01-11] MEDS ORDERED: INSU1INJ5 SC (16:19)
[2020-01-11] MEDS ORDERED: MONT10TA34 PO (16:19)
[2020-01-11] MEDS ORDERED: OLOP1DRO5 OP (16:20)
[2020-01-11] MEDS ORDERED: ATOR20TA PO (16:21)
[2020-01-11] MEDS ORDERED: CLOP75TA28 PO (16:21)
[2020-01-11] MEDS ORDERED: ASPI-498 PO (16:22)
[2020-01-11] MEDS ORDERED: FERR325T20 PO (16:22)
[2020-01-11] MEDS ORDERED: NITR0.4S29 SL (16:24)
[2020-01-11] MEDS ORDERED: DICL1GEL35 TD (16:25)
[2020-01-11] MEDS ORDERED: FLUT1SPR5 (16:26)
[2020-01-11] MEDS ORDERED: LEVA1AER IN (16:27)
[2020-01-11 16:48] VITALS: BP 108/40
[2020-01-11 22:00] VITALS: BP 121/40
[2020-01-11] MEDS ORDERED: InsuLIN REG 1unit/0.01ml Soln (100units/ml) SC SCH (22:00)
[2020-01-12 00:39] VITALS: BP 121/40
[2020-01-12] MEDS ORDERED: ALBUTEROL SULF 2.5 MG/0.5ML(0.5%) NEB SOLN NEB PRN (04:00)
[2020-01-12 05:00] VITALS: BP 128/44
[2020-01-12 05:40] LABS: Basophils # (auto) 0 10 ^3/uL (0-0.2); Basophils % (auto) 0.7 % (0.0-2.0); Eosinophils # (auto) 0.1 10 ^3/uL (0-0.8); Eosinophils % (auto) 4.6 % (0.0-7.0); Hematocrit 24.5 % (36.0-46.0); Lymphocytes # (auto) 0.7 10 ^3/uL (0.4-5.4); Lymphocytes % (auto) 33.4 % (10.0-50.0); Mean Corpuscular Hemoglobin 27.4 pg (28.0-32.0); Mean Corpuscular Hgb Conc. 32.8 g/dL (32.0-36.0); Mean Corpuscular Volume 83.6 fL (80.0-100.0); Monocytes # (auto) 0.3 10 ^3/uL (0-1.3); Monocytes % (auto) 13.3 % (0.0-12.0); Neutrophils # (auto) 1.1 10 ^3/uL (1.6-8.6); Nucleated Red Blood Cells % 0.3 %; Platelet Count (auto) 81 10^3/uL (140-450); Red Blood Cells 2.93 10^6/uL (4.0-5.20); Red Cell Distribution Width 17.6 % (11.8-14.3); White Blood Cell 2.2 10^3/uL (4.4-10.8)
[2020-01-12 05:58] LABS: BUN/Creatinine Ratio 25.9; Calcium 8.6 mg/dL (8.5-10.1); Magnesium 1.8 mg/dL (1.6-2.6); Potassium 4.3 mmol/L (3.5-5.1)
[2020-01-12] MEDS: SPIRONOLACTONE 25 MG TAB PO SCH (06:00)
[2020-01-12 06:03] LABS: % Iron Saturation 6.9 % (15-50)
[2020-01-12] MEDS: CLINDAMYCIN 600MG IV 50 ML IV SCH ×2 (06:03→13:44)
[2020-01-12] MEDS: InsuLIN REG 1unit/0.01ml Soln (100units/ml) SC SCH ×2 (06:11→11:23)
[2020-01-12] MEDS: ACCU-CHEK COMFORT CURVE STRIP VI SCH ×2 (06:13→11:18)
[2020-01-12] MEDS: BUDESONIDE (INHALATION) 0.5 MG/2 ML NEB NEB SCH (06:37)
[2020-01-12] MEDS: ALBUTEROL SULF 2.5 MG/0.5ML(0.5%) NEB SOLN NEB SCH ×2 (06:37→15:34)
[2020-01-12] MEDS: cefTRIAXone 1GM/50ML D5W 50 ML IV SCH (08:23)
[2020-01-12 08:46] VITALS: BP 115/47
[2020-01-12] MEDS: FUROSEMIDE 40 MG/4 ML VIAL IV SCH (09:39)
[2020-01-12] MEDS: DIGOXIN 0.125 MG TAB PO SCH (09:40)
[2020-01-12] MEDS: MAGNESIUM OXIDE 400 MG TAB PO SCH (09:40)
[2020-01-12] MEDS: PANTOPRAZOLE 40 MG/10 ML VIAL INJ IV SCH (09:40)
[2020-01-12] MEDS: METOPROLOL SUCCINATE XL 50 MG TAB PO SCH (09:40)
[2020-01-12] MEDS: INSULIN LANTUS (GLARGINE) 1 /0.01ml (100units/ml) SC SCH (09:41)
[2020-01-12] MEDS: ENOXAPARIN SOD 60 MG/0.6 ML SYRINGE SC SCH (09:43)
[2020-01-12 12:35] VITALS: BP 137/54
[2020-01-12 14:03] LABS: Hepatitis A Ab IgM Negative; Hepatitis B Core IgM Negative; Hepatitis B Surface Antigen Negative (Negative); Hepatitis C Antibody Negative (Negative)
[2020-01-12 14:51] VITALS: BP 137/54
== END 2020-01-12 16:50 | disposition home health service (06) | DRG 432 ==
LOC: ER 07:03 → TELE 07:04 → TELE-WESTW 12:42
PROVIDERS: ADMIT Internal Medicine; ATTEND Hospitalist
DX: K74.69 Other cirrhosis of liver (principal); K65.2 Spontaneous bacterial peritonitis; I50.43 Acute on chronic combined systolic (congestive) and diastolic (congestive) heart failure; K76.6 Portal hypertension; I82.412 Acute embolism and thrombosis of left femoral vein; R18.8 Other ascites; L03.311 Cellulitis of abdominal wall; I85.10 Secondary esophageal varices without bleeding; D61.818 Other pancytopenia; E44.0 Moderate protein-calorie malnutrition; E87.1 Hypo-osmolality and hyponatremia; Z68.1 Body mass index [BMI] 19.9 or less, adult; I11.0 Hypertensive heart disease with heart failure; K29.70 Gastritis, unspecified, without bleeding; M79.89 Other specified soft tissue disorders; E11.65 Type 2 diabetes mellitus with hyperglycemia; Z83.3 Family history of diabetes mellitus; Z79.84 Long term (current) use of oral hypoglycemic drugs; I25.10 Atherosclerotic heart disease of native coronary artery without angina pectoris; I48.0 Paroxysmal atrial fibrillation; Z79.01 Long term (current) use of anticoagulants; Z86.73 Personal history of transient ischemic attack (TIA), and cerebral infarction without residual deficits; E78.5 Hyperlipidemia, unspecified; Z79.4 Long term (current) use of insulin; J45.909 Unspecified asthma, uncomplicated; R16.1 Splenomegaly, not elsewhere classified; Z88.2 Allergy status to sulfonamides; Z88.8 Allergy status to other drugs, medicaments and biological substances; Z79.02 Long term (current) use of antithrombotics/antiplatelets; Z79.82 Long term (current) use of aspirin; Z87.01 Personal history of pneumonia (recurrent); Z90.710 Acquired absence of both cervix and uterus; Z95.5 Presence of coronary angioplasty implant and graft
CPT/HCPCS: 36415; 71045; 74176; 76705; 80048; 80053; 80061; 80074; 81001; 82105; 82550; 82607; 82728; 82962; 83036; 83540; 83550; 83615; 83735; 83880; 84443; 84484; 85025; 85045; 85610; 85730; 86038; 86850; 86880; 86900; 86901; 87081; 93005; 93971; 94640; 99291; C9113; G0378; J0696; J1815; J3490

== ENCOUNTER 2020-02-05 14:37 | Emergency (ER) | payer OTHER, MEDICAID ==
[~2020-02-05] VITALS: Ht 167.6 cm; Wt 68.0 kg
[~2020-02-05 14:37] MED LIST changes: +ASPI-498 PO; +ATOR20TA PO; +CLOP75TA28 PO; -DILTIAZEM PO; +FERR325T20 PO; +FLUT1AER6 IN; +FLUT1SPR5; +INSU1INJ5 SC; +LEVA1AER IN; +MONT10TA34 PO; +NITR0.4S29 SL; +OLOP1DRO5 OP; -PANT1INJ3 PO; +PANT40T PO; -WARFARIN PO
[2020-02-05] MEDS ORDERED: SPIR25TA8 PO (15:10)
[2020-02-05] MEDS ORDERED: FURO1TAB31 PO (15:12)
[2020-02-05] MEDS ORDERED: APIX2.5T PO (15:14)
[2020-02-05] MEDS ORDERED: LEVEMIR SC (15:20)
[2020-02-05 15:36] LABS: Basophils # (auto) 0 10 ^3/uL (0-0.2); Eosinophils # (auto) 0.1 10 ^3/uL (0-0.8); Hemoglobin 7.9 g/dL (12.2-16.2); Monocytes # (auto) 0.4 10 ^3/uL (0-1.3); Neutrophils # (auto) 2.1 10 ^3/uL (1.6-8.6)
[2020-02-05 15:40] LABS: Basophils % (auto) 0.2 % (0.0-2.0); Eosinophils % (auto) 3.6 % (0.0-7.0); Hematocrit 24.5 % (36.0-46.0); Lymphocytes # (auto) 0.6 10 ^3/uL (0.4-5.4); Lymphocytes % (auto) 17.4 % (10.0-50.0); Mean Corpuscular Hemoglobin 26.4 pg (28.0-32.0); Mean Corpuscular Hgb Conc. 32.2 g/dL (32.0-36.0); Mean Corpuscular Volume 81.9 fL (80.0-100.0); Monocytes % (auto) 11.8 % (0.0-12.0); Platelet Count (auto) 67 10^3/uL (140-450); Red Blood Cells 2.99 10^6/uL (4.0-5.20); White Blood Cell 3.2 10^3/uL (4.4-10.8)
[2020-02-05 15:47] LABS: INR 1.35 (0.9-1.15); Partial Thromboplastin Time 31.7 sec (23.64-32.05)
[2020-02-05 15:51] LABS: Albumin 2.9 g/dL (3.4-5.0); BUN/Creatinine Ratio 22.9; Calcium 9.3 mg/dL (8.5-10.1); Potassium 4.3 mmol/L (3.5-5.1)
[2020-02-05 15:55] LABS: Bilirubin, Total 0.9 mg/dL (0.2-1.0); Total Protein 6.2 g/dL (6.4-8.2)
[2020-02-05] MEDS ORDERED: ONDANSETRON HCL 4 MG/2 ML VIAL ONE (17:05)
[2020-02-05 17:15] LABS: Urine Bacteria NONE SEEN /hpf (None Seen); Urine Blood Negative /uL (Negative); Urine Hyaline Cast FEW /lpf (0 - 2); Urine WBC 2 /hpf (0 - 5)
[2020-02-05] MEDS ORDERED: ONDANSETRON HCL 4 MG/2 ML VIAL IV ONE (17:15)
[2020-02-05] MEDS ORDERED: ACETAMINOPHEN 325 MG TAB PO ONE (17:15)
[2020-02-05 17:39] VITALS: BP 140/52
== END 2020-02-05 17:52 | disposition short-term general hospital (02) ==
LOC: EDBD 14:37 → ER 14:37
DX: S06.5X9A Traumatic subdural hemorrhage with loss of consciousness of unspecified duration, initial encounter (principal); Z88.2 Allergy status to sulfonamides; Z88.8 Allergy status to other drugs, medicaments and biological substances; Z88.1 Allergy status to other antibiotic agents; Z79.82 Long term (current) use of aspirin; Z79.899 Other long term (current) drug therapy; Z79.84 Long term (current) use of oral hypoglycemic drugs; W19.XXXA Unspecified fall, initial encounter; Y93.89 Activity, other specified; Y92.89 Other specified places as the place of occurrence of the external cause; Y99.8 Other external cause status
CPT/HCPCS: 36415; 70450; 70486; 72125; 80053; 81001; 84484; 85025; 85610; 85730; 93005; 96374; 99285; J2405